=== PATIENT | female | born 2000 | race African-American/Black ===

== ENCOUNTER 2024-04-04 21:08 | Emergency (ER) | payer MEDICAID ==
[~2024-04-04] VITALS: Wt 84.5 kg
[2024-04-04 21:21] VITALS: TEMP 99.2
[2024-04-04] MEDS ORDERED: dexAMETHasone 10 MG/ML VIAL PO ONE (21:45)
[2024-04-04] MEDS ORDERED: Promethazine 25 MG TAB PO ONE (21:45)
[2024-04-04] MEDS ORDERED: D5NS 1,000 ML IV SCH (21:45)
[2024-04-04 22:00] VITALS: O2SAT 97
[2024-04-04 22:00] LABS: PH 6.5 (5.0-8.5); URINE APPEARANCE CLEAR (CLEAR/HAZY); URINE BLOOD NEGATIVE (NEGATIVE); URINE COLOR YELLOW (YELLOW); URINE GLUCOSE NEGATIVE (NEGATIVE); URINE KETONE 2+ (NEGATIVE); URINE NITRATE NEGATIVE (NEGATIVE); URINE PROTEIN(semi-quant) NEGATIVE (NEGATIVE)
[2024-04-04 22:10] LABS: COLLECTION METHOD CLEAN CATCH
--- NOTE | 2024-04-04 22:10 | NUR ---
G1LO. Pt of Lashon grissom in [place]. 35.5wks in the ER for chest pain, congestion and runny nose. Pt denies feeling contractions, leaking of fluids or vaginal bleeding. Reports good movement. Pt does report [place] but she states she has been having them for a couple of weeks now and her cervix was checked at her last appt and she was not dilated. Pt denies being able to eat or drink much today. Pt reports having a lot of anxiety but denie taking any medication. 2300: ER provider updated on pt's status and [facility] not being reactive at this time. Pt to transfer up to labor and delivery for further evaluation after chest x-ray. [facility] also updated at this time.
--- NOTE | 2024-04-04 23:00 | NUR ---
Contractions per [facility] every 2-4 mins apart, lasting 60-120seconds. Pt denies feeling like they are actual contractions and reports them as king aguilera.
[2024-04-04 23:25] VITALS: BP 141/92; PULSE 104
[2024-04-04] MEDS ORDERED: LR 1,000 ML IV PRN (23:45)
[2024-04-04] MEDS ORDERED: NATURAL IRON65 MG (23:53)
== END 2024-04-04 23:25 | disposition home or self-care (01) ==
LOC: COL.ER 21:08
PROVIDERS: Emergency Medicine
DX: O99.513 Diseases of the respiratory system complicating pregnancy, third trimester (principal); J02.9 Acute pharyngitis, unspecified; O26.893 Other specified pregnancy related conditions, third trimester; R07.89 Other chest pain; Z3A.35 35 weeks gestation of pregnancy
CPT/HCPCS: J1100